=== PATIENT | female | born 1960 | race African-American/Black ===

== ENCOUNTER 2017-02-13 00:38 | Emergency (ER) | payer MEDICARE, OTHER ==
[~2017-02-13] VITALS: Ht 167.6 cm; Wt 61.2 kg
--- NOTE | 2017-02-13 01:35 | NUR ---
Dr. Avila at bedside for MSE
[2017-02-13 02:05] LABS: BASOPHILS % (AUTO) 0.6 % (0.0-2.0); EOSINOPHILS # (AUTO) 0.1 K/uL (0.0-0.7); EOSINOPHILS % (AUTO) 2.3 % (0.0-7.0); HEMATOCRIT 36.8 % (37-47); HEMOGLOBIN 12.5 G/DL (12.0-16.0); LYMPHOCYTES # (AUTO) 2.2 K/UL (0.8-4.8); LYMPHOCYTES % (AUTO) 35.2 % (20.5-51.5); MEAN CORPUSCULAR HEMOGLOBIN 31.7 UUG (27.0-31.0); MEAN CORPUSCULAR HGB CONC 34 g/dL (32.0-37.0); MEAN CORPUSCULAR VOLUME 93.2 FL (81.0-99.0); MONOCYTES # (AUTO) 0.5 K/UL (0.1-1.30); MONOCYTES % (AUTO) 7.7 % (0.0-11.0); NEUTROPHILS # (AUTO) 3.4 K/UL (1.8-8.9); NEUTROPHILS % (AUTO) 54.2 % (38.5-71.5); PLATELET COUNT (AUTO) 189 K/UL (150-450); RED BLOOD CELL COUNT(AUTO) 3.95 MIL/UL (4.2-5.4); WHITE BLOOD COUNT (AUTO) 6.2 K/UL (4.0-11.2)
[2017-02-13 02:16] LABS: BILIRUBIN,TOTAL 0.4 mg/dL (0.2-1.0); CREATININE 0.9 mg/dL (0.6-1.3); POTASSIUM 3.6 mmol/L (3.5-5.1); TOTAL PROTEIN, SERUM 7.3 g/dL (6.4-8.2)
--- NOTE | 2017-02-13 03:15 | NUR ---
Pt resting in position of comfort for self. Pt c/o headache, sts it is 5/10 and is tolerable at this time. Pt declined need for medication.
[2017-02-13 03:39] LABS: *BILIRUBIN,URIN NEGATIVE (NEGATIVE); *BLOOD, URINE NEGATIVE (NEGATIVE); *CLARITY,URINE CLEAR (CLEAR); *COLOR,URINE YELLOW (YELLOW); *KETONES,URINE NEGATIVE (NEGATIVE); *PROTEIN,URINE NEGATIVE (NEGATIVE); *UROBILINOGEN,URINE 0.2 E.U./dl (NORMAL); LEUKOCYTE ESTERASE ,URINE NEGATIVE (NEGATIVE); NITRITE, URINE NEGATIVE (NEGATIVE); UGLUCOSE NEGATIVE (NEGATIVE)
[2017-02-13 03:41] LABS: BACTERIA,URINE FEW /HPF (NONE SEEN); RBC,URINE 0-3 /HPF (0-3); SQUAMOUS EPITHELIAL CELL,UR FEW /HPF (NONE SEEN)
--- NOTE | 2017-02-13 05:02 | NUR ---
Consent signed, time out down. Dr. Avila at bedside to complete LP.
--- NOTE | 2017-02-13 05:30 | NUR ---
LP unsuccessful. To be determined if pt to have LP with fluroscopy or off site MRI. Pt repositioned for comfort. No complaints at this time.
--- NOTE | 2017-02-13 06:50 | NUR ---
TEXTED DR. PRICE FOR MRI APPROVAL.
--- NOTE | 2017-02-13 06:59 | NUR ---
DR. PRICE TEXTED BACK,SAID HE WILL LET US KNOW.
--- NOTE | 2017-02-13 07:00 | NUR ---
Pt resting in position of comfort for self. No complaints at this time. Resp even and unlabored. Waiting to determine plan of care for pt, if pt will obtain LP with fluroscopy or off site MRI. Dr. Albarado to speak with pt.
--- NOTE | 2017-02-13 07:17 | NUR ---
PT RESTIN IN BED, DENIES PAIN.
--- NOTE | 2017-02-13 07:38 | NUR ---
Report given to SHERIE Munoz. I relinquish care of pt at this time
--- NOTE | 2017-02-13 09:19 | NUR ---
PER RADIALOGIST REQUEST, PT SIGNED CONSENT FOR LP W/ FLOROSCOPY.
[2017-02-13] MEDS ORDERED: IOHEXOL 350 100 ML INFUS..BTL ONE (10:32)
[2017-02-13] MEDS ORDERED: IV NORMAL SALINE 250 ML IV ONE (10:32)
--- NOTE | 2017-02-13 10:45 | NUR ---
pt signed consent for CTA, placed in the chart.
--- NOTE | 2017-02-13 11:48 | NUR ---
PT USING OWN WALKER TO BATHROOM. PT AWAITING CTA RESULT.
--- NOTE | 2017-02-13 12:16 | NUR ---
PT RESTING IN BED, DENIES HEADACHE. PT WISHES TO GO HOME.
[2017-02-13 12:30] VITALS: BP 116/70
--- NOTE | 2017-02-13 12:30 | NUR ---
IV removed. Catheter intact and site benign. Pressure and 4x4 gauze applied to site. No bleeding noted.
--- NOTE | 2017-02-13 13:02 | NUR ---
Patient discharged to home in stable conditon. Written and verbal after care instructions given. Patient verbalizes understanding of instructions.
== END 2017-02-13 13:05 | disposition home or self-care (01) ==
LOC: ER 00:52
DX: R51 Headache (principal); Z88.0 Allergy status to penicillin; Z88.2 Allergy status to sulfonamides; Z88.6 Allergy status to analgesic agent; W18.30XA Fall on same level, unspecified, initial encounter; Y93.89 Activity, other specified; Y99.8 Other external cause status; Y92.89 Other specified places as the place of occurrence of the external cause
CPT/HCPCS: 36415; 70450; 70496; 85025; 85610; A4663; J7050; Q9967

== ENCOUNTER 2018-01-19 01:41 | Emergency (ER) | payer MEDICARE, OTHER ==
[~2018-01-19] VITALS: Ht 167.6 cm; Wt 60.8 kg
--- NOTE | 2018-01-19 01:50 | NUR ---
Pt ambulates to ER with c/o lower right back pain x 1 day & left breast pain x 1 week. Per pt, she woke up at 0900 yesterday morning with constant back pain. Per pt, she states she had a mammogram done at [facility] approximately 3 months ago. Pt denies chest pain. Pt denies SOB/congestion. Pt denies GI/GI Distress. AAOX4. No acute distress noted. VSS.
[2018-01-19] MEDS ORDERED: IBUPROFEN 600 MG TABLET ONE (02:26)
[2018-01-19] MEDS ORDERED: IBUPROFEN 600 MG TABLET PO ONE (02:30)
--- NOTE | 2018-01-19 03:15 | NUR ---
dPatient discharged to home in stable conditon. Written and verbal after care instructions given. Patient verbalizes understanding of instructions. Pt ambulated out of ER in steady gait. All belongings with pt. VSS. No acute distress noted.
[2018-01-19 03:16] VITALS: BP 112/65
== END 2018-01-19 03:13 | disposition home or self-care (01) ==
LOC: ER 01:45
DX: M54.5 Low back pain (principal); Z88.0 Allergy status to penicillin; Z88.2 Allergy status to sulfonamides; Z88.5 Allergy status to narcotic agent
CPT/HCPCS: 72100; A4663

== ENCOUNTER 2018-10-25 15:51 | Emergency (ER) | payer MEDICARE, OTHER ==
[~2018-10-25] VITALS: Ht 167.6 cm; Wt 63.5 kg
[2018-10-25] MEDS ORDERED: GABAPENTIN (16:09)
[2018-10-25] MEDS ORDERED: OXYCODONE (16:09)
[2018-10-25] MEDS ORDERED: TRAMADOL (16:09)
--- NOTE | 2018-10-25 16:27 | NUR ---
PT IS IN ROOM #1B. DR BRENNER EVALUATED THE PT.
[2018-10-25] MEDS ORDERED: IV NORMAL SALINE 1000 ML BAG IV ONE (16:30)
[2018-10-25 17:00] LABS: BASOPHILS # (AUTO) 0.1 K/uL (0.0-8.0); BASOPHILS % (AUTO) 1.2 % (0.0-2.0); EOSINOPHILS # (AUTO) 0.5 K/uL (0.0-0.7); EOSINOPHILS % (AUTO) 7.3 % (0.0-7.0); HEMATOCRIT 33.9 % (31.2-41.9); HEMOGLOBIN 11.6 g/dL (10.9-14.3); LYMPHOCYTES # (AUTO) 1.3 K/uL (20.0-40.0); LYMPHOCYTES % (AUTO) 20.7 % (20.5-51.5); MEAN CORPUSCULAR HEMOGLOBIN 32.1 uug (24.7-32.8); MEAN CORPUSCULAR HGB CONC 34 g/dL (32.3-35.6); MEAN CORPUSCULAR VOLUME 94.1 fL (75.5-95.3); MONOCYTES # (AUTO) 0.4 K/uL (2.0-10.0); MONOCYTES % (AUTO) 6.6 % (0.0-11.0); NEUTROPHILS % (AUTO) 64.2 % (38.5-71.5); PLATELET COUNT (AUTO) 246 K/uL (179-408); WHITE BLOOD COUNT (AUTO) 6.3 K/uL (3.8-11.8)
[2018-10-25 17:10] LABS: CARBON DIOXIDE 29 mmol/L (21-32); CHLORIDE 105 mmol/L (98-107); CREATININE 0.5 mg/dL (0.6-1.3); GLUCOSE 98 mg/dL (74-106); POTASSIUM 4.2 mmol/L (3.5-5.1); UREA NITROGEN, BLOOD 13 mg/dL (7-18)
[2018-10-25 17:16] LABS: ALANINE AMINOTRANSFERASE 24 U/L (14-59); ALKALINE PHOSPHATASE 99 U/L (50-136); ASPARTATE AMINOTRANSFERASE 18 U/L (15-37); BILIRUBIN,DIRECT 0.1 mg/dL (0.0-0.2); BILIRUBIN,TOTAL 0.5 mg/dL (0.2-1.0); LIPASE 35 U/L (73-393); TOTAL PROTEIN, SERUM 6.8 g/dL (6.4-8.2)
[2018-10-25] MEDS: IV NORMAL SALINE 1000 ML BAG IV ONE ×2 (17:40→17:47)
--- NOTE | 2018-10-25 18:45 | NUR ---
PT WAS D/C'd TO HOME. D/C INSTRUCTIONS GIVEN TO THE PT.
[2018-10-25 18:59] VITALS: BP 123/78
== END 2018-10-25 19:00 | disposition home or self-care (01) ==
LOC: ER 15:52
DX: G89.18 Other acute postprocedural pain (principal); R07.89 Other chest pain; R51 Headache; Z88.0 Allergy status to penicillin; Z88.2 Allergy status to sulfonamides; Z88.5 Allergy status to narcotic agent; Z79.899 Other long term (current) drug therapy
CPT/HCPCS: 36415; 70030-TC; 70450; 71045; 83605; 83690; 85025; 85730; 87040; 93005; A4663; J7030

== ENCOUNTER 2020-12-07 15:20 | Emergency (ER) | payer MEDICARE, OTHER ==
[~2020-12-07] VITALS: Ht 167.6 cm; Wt 61.2 kg
[~2020-12-07 15:20] MED LIST: GABAPENTIN; OXYCODONE; TRAMADOL
--- NOTE | 2020-12-07 15:51 | NUR ---
patient brought into room complaining of lower back pain. uses walker.
--- NOTE | 2020-12-07 15:57 | NUR ---
patient being seen at this time by ER physician
[2020-12-07] MEDS ORDERED: LIDOCAINE 5% PATCH TD ONE ×2 (16:30→16:40)
[2020-12-07 16:35] LABS: *BILIRUBIN,URIN NEGATIVE (NEGATIVE); *BLOOD, URINE NEGATIVE (NEGATIVE); *CLARITY,URINE CLEAR (CLEAR); *COLOR,URINE YELLOW (YELLOW); *KETONES,URINE TRACE (NEGATIVE); *UROBILINOGEN,URINE 0.2 E.U./dl (NORMAL); LEUKOCYTE ESTERASE ,URINE NEGATIVE (NEGATIVE); NITRITE, URINE NEGATIVE (NEGATIVE); UGLUCOSE NEGATIVE (NEGATIVE)
[2020-12-07 16:42] LABS: BACTERIA,URINE NONE SEEN /HPF (NONE SEEN); RBC,URINE 0-3 /HPF (0-3); SQUAMOUS EPITHELIAL CELL,UR FEW /HPF (NONE SEEN); WBC,URINE 0-3 /HPF (0-3)
--- NOTE | 2020-12-07 17:05 | NUR ---
DR KNAPP IN THE ROOM TO FOLLOW UP WITH RESULTS AND WILL PREPARE FOR DISCHARGE.
[2020-12-07] MEDS ORDERED: DIAZ2TAB PO (17:30)
[2020-12-07] MEDS ORDERED: LIDO30AD10 TD (17:30)
--- NOTE | 2020-12-07 17:46 | NUR ---
DISCHARGE PAPERWORK GIVEN TO PATIENT WITH DOCTOR REFERALS AND PRESCRIPTIONS. PATIENT CONFIRMED AND SIGNED.
== END 2020-12-07 17:56 | disposition home or self-care (01) ==
LOC: ER 15:22
DX: M54.9 Dorsalgia, unspecified (principal); Z85.118 Personal history of other malignant neoplasm of bronchus and lung; Z90.2 Acquired absence of lung [part of]; Z88.5 Allergy status to narcotic agent; Z88.0 Allergy status to penicillin; Z88.2 Allergy status to sulfonamides; G82.20 Paraplegia, unspecified
CPT/HCPCS: A4663

== ENCOUNTER 2022-04-06 20:29 | Emergency (ER) | payer MEDICARE, OTHER ==
[~2022-04-06] VITALS: Ht 167.6 cm; Wt 68.0 kg
[~2022-04-06 20:29] MED LIST changes: +DIAZ2TAB PO; -GABAPENTIN; +LIDO30AD10 TD; -OXYCODONE; -TRAMADOL
--- NOTE | 2022-04-06 22:25 | NUR ---
Called [facility] ambulance for transport back to patient's home, eta 1 hour ~2330.
--- NOTE | 2022-04-07 00:45 | NUR ---
pt p/u by [facility].
[2022-04-07 01:04] VITALS: BP 125/80
== END 2022-04-07 01:05 | disposition home or self-care (01) ==
LOC: ER 20:29
DX: S09.90XA Unspecified injury of head, initial encounter (principal); W01.198A Fall on same level from slipping, tripping and stumbling with subsequent striking against other object, initial encounter; Y92.89 Other specified places as the place of occurrence of the external cause; I69.369 Other paralytic syndrome following cerebral infarction affecting unspecified side; G82.20 Paraplegia, unspecified; S16.1XXA Strain of muscle, fascia and tendon at neck level, initial encounter; R60.0 Localized edema; C34.91 Malignant neoplasm of unspecified part of right bronchus or lung; Z90.2 Acquired absence of lung [part of]; Z88.5 Allergy status to narcotic agent; Z88.0 Allergy status to penicillin; Z88.2 Allergy status to sulfonamides
CPT/HCPCS: 70450; 72125; A4663